=== PATIENT | female | born 1995 | race Caucasian/White ===

== ENCOUNTER 2018-01-22 00:39 | Emergency (ER) | payer SELFPAY ==
--- NOTE | 2018-01-22 00:53 | EDM.PDOC ---
ED HPI GENERAL MEDICAL PROBLEM - General Chief Complaint: ENT Problem Stated Complaint: TOOTH PAIN Time Seen by Provider: 01/22/18 00:53 Source of Information: Reports: Patient - History of Present Illness INITIAL COMMENTS - FREE TEXT/NARRATIVE: HISTORY AND PHYSICAL: History of present illness: 22-year-old 36 week female presenting to the emergency department with right lower facial pain. Patient states that she has had a dental abscess for some time. She had been seeing Patti Kwok NP as her INSULATION ENGINEMAN who placed her on penicillin. States that she took the medication for some time but then stopped. She restarted taking the medication 4-5 days ago but it does not seem to be helping. Pain is located in the right molar region. She has not seen a dentist. She denies any fever, chills, nausea, vomiting, diarrhea, or other signs of systemic infection. Review of systems: As per history of present illness and below otherwise all systems reviewed and negative. Past medical history: As per history of present illness and as reviewed below otherwise noncontributory. Surgical history: As per history of present illness and as reviewed below otherwise noncontributory. Social history: No reported history of drug or alcohol abuse. Family history: As per history of present illness and as reviewed below otherwise noncontributory. Physical exam: HEENT: Poor dentition throughout. Adjacent to maxillary molars 30-32 there is inflammation of the soft tissues without extension into the jaw. Patient is non- tender to tapping on teeth. Atraumatic, normocephalic, pupils reactive, negative for conjunctival pallor or scleral icterus, mucous membranes moist, throat clear, neck supple, nontender, trachea midline. Lungs: Clear to auscultation, breath sounds equal bilaterally, chest nontender. Heart: S1S2, regular, negative for clicks, rubs, or JVD. Abdomen: Soft, nondistended, nontender. Negative for masses or hepatosplenomegaly. Negative for costovertebral tenderness. Pelvis: Stable nontender. Genitourinary: Deferred. Rectal: Deferred. Extremities: Atraumatic, negative for cords or calf pain. Neurovascular unremarkable. Neuro: Awake, alert, oriented. Cranial nerves II through XII unremarkable. Cerebellum unremarkable. Motor and sensory unremarkable throughout. Exam nonfocal. Diagnostics: [] Therapeutics: Dental balls, Clindamycin 600 mg x1, 300 mg qid x10 days Impression: Dental abscess Plan: Patient received good relief with dental ball placement. Secondary the patient haven taking penicillin previously without any improvement in her symptoms anabiotic was switched to clindamycin which is category B. She was given 600 mg 1 while in emergency room and a prescription for 300 mg 4 times a day 10 days. Patient was instructed to follow-up with her INSULATION ENGINEMAN provider Patti Kwok NP. In addition, patient was given information on dentist for extraction of teeth causing abscess. It was explained to the patient that without proper dental treatment this may reoccur. Patient was understanding and was discharged in good condition with instructions to return to emergency department if she had any new or worsening symptoms. tooth Pain Score (Numeric/FACES): 10 - Related Data Allergies Allergy/AdvReac Type Severity Reaction Status Date / Time No Known Allergies Allergy Verified 01/22/18 00:56 Home Meds: Home Meds Penicillin V Potassium 0 mg PO DAILY 01/22/18 [History] Past Medical History - Past Health History Medical/Surgical History: Denies Medical/Surgical History INSULATION ENGINEMAN History: Reports: Social & Family History - Family History Family Medical History: Noncontributory ED ROS GENERAL - Review of Systems Review Of Systems: See Below ED EXAM, GENERAL - Physical Exam Exam: See Below Course - Vital Signs Last Recorded V/S: Last Vital Signs Temp 97.3 F 01/22/18 00:39 Pulse 97 01/22/18 00:39 Resp 18 01/22/18 00:39 BP 143/81 H 01/22/18 00:39 Pulse Ox 99 01/22/18 00:39 - Orders/Labs/Meds Meds: Medications Discontinued Medications Generic Name Dose Route Start Last Admin Trade Name Freq PRN Reason Stop Dose Admin Benzocaine 2 each 01/22/18 00:57 01/22/18 01:06 Hurricaine One 20% MUCMEM 01/22/18 00:58 2 each ONETIME ONE Administration Lidocaine HCl 15 ml 01/22/18 00:57 01/22/18 01:06 Xylocaine 2% Viscous PO 01/22/18 00:58 15 ml ONETIME ONE Administration Departure - Departure Time of Disposition: 01:43 Disposition: Home, Self-Care 01 Condition: Good Clinical Impression: Dental abrasion, localized - Discharge Information Referrals: Emeka Morris MD [Primary Care Provider] - Forms: ED Department Discharge Additional Instructions: My general discharge The following information is given to patients seen in the emergency department who are being discharged to home. This information is to outline your options for follow-up care. We provide all patients seen in our emergency department with a follow-up referral. The need for follow-up, as well as the timing and circumstances, are variable depending upon the specifics of your emergency department visit. If you don't have a primary care physician on staff, we will provide you with a referral. We always advise you to contact your personal physician following an emergency department visit to inform them of the circumstance of the visit and for follow-up with them and/or the need for any referrals to a consulting specialist. The emergency department will also refer you to a specialist when appropriate. This referral assures that you have the opportunity for follow-up care with a specialist. All of these measure are taken in an effort to provide you with optimal care, which includes your follow-up. Under all circumstances we always encourage you to contact your private physician who remains a resource for coordinating your care. When calling for follow-up care, please make the office aware that this follow-up is from your recent emergency room visit. If for any reason you are refused follow-up, please contact the [facility] Emergency Department at and asked to speak to the emergency department charge nurse. [facility] - [facility] [address] [place] [id number] [address] [facility] [address] [place] [id number]
[2018-01-22] MEDS: Benzocaine 20% Topical Spray UD MUCMEM ONE (01:06)
[2018-01-22] MEDS: Lidocaine 2% Viscous Solution 15 ML Cup PO ONE (01:06)
[2018-01-22] MEDS: Clindamycin HCl 150 MG Cap PO ONE (01:38)
[2018-01-22 01:56] VITALS: BP 106/75
== END 2018-01-22 01:54 | disposition home or self-care (01) ==
LOC: MW.ED 00:39
DX: O99.613 Diseases of the digestive system complicating pregnancy, third trimester (principal); K04.7 Periapical abscess without sinus; K03.1 Abrasion of teeth; Z3A.36 36 weeks gestation of pregnancy
CPT/HCPCS: 99282; A9270

== ENCOUNTER 2018-02-12 22:24 | Inpatient (IN) | payer MEDICAID ==
[~2018-02-12 22:24] MED LIST: Ampicillin 2 GM in Sodium Chloride 0.9% 100 ML IV ONE
[2018-02-12] MEDS ORDERED: Sodium Chloride 0.9% 100 ML ONE (22:25)
[2018-02-12] MEDS ORDERED: Ampicillin 2 GM AdvVial IV ONE (22:25)
[2018-02-12] MEDS ORDERED: Misoprostol 200 MCG Tab PO PRN (22:28)
[2018-02-12] MEDS ORDERED: Butorphanol 1 MG/ML SDV IVPUSH PRN (22:28)
[2018-02-12] MEDS ORDERED: Tranexamic Acid 1,000 MG in Sodium Chloride 0.9% 100 ML IV PRN (22:28)
[2018-02-12] MEDS ORDERED: Lidocaine 1% 50 ML MDV INJECT PRN (22:28)
[2018-02-12] MEDS ORDERED: Carboprost Tromethamine 250 MCG/1 ML Amp IM PRN (22:28)
[2018-02-12] MEDS ORDERED: Sodium Chloride 0.9% 10 ML Syringe FLUSH PRN (22:28)
[2018-02-12] MEDS ORDERED: Methylergonovine 0.2 MG/1 ML Amp IM PRN ×2 (22:28→23:28)
[2018-02-12] MEDS ORDERED: Sodium Chloride 0.9% 2.5 ML Syringe FLUSH PRN (22:28)
[2018-02-12] MEDS ORDERED: Water For Irrigation,Sterile 1,000 ML Container IRR PRN (22:28)
[2018-02-12] MEDS ORDERED: Nalbuphine 10 MG/1 ML Vial IVPUSH PRN (22:28)
[2018-02-12] MEDS ORDERED: Oxytocin/0.9 % Sodium Chloride 30 UNIT/500 ML BAG IV SCH (22:30)
[2018-02-12] MEDS ORDERED: Lactated Ringers 1,000 ML IV SCH (22:30)
[2018-02-12] MEDS ORDERED: Oxytocin/0.9 % Sodium Chloride 30 UNIT/500 ML BAG ONE (22:47)
[2018-02-12] MEDS ORDERED: Lidocaine 1% 50 ML MDV ONE (22:48)
[2018-02-12] MEDS ORDERED: Ibuprofen 400 MG Tab PO PRN (23:28)
[2018-02-12] MEDS ORDERED: Witch Hazel Medicated Pads 40/Jar TOP PRN (23:28)
[2018-02-12] MEDS ORDERED: Benzocaine/Menthol 20%-0.5% Spray 78 GM Cannister TOP PRN (23:28)
[2018-02-12] MEDS ORDERED: oxyCODONE 5 MG Tab PO PRN (23:28)
[2018-02-12] MEDS ORDERED: Lanolin 100% Cream 7 GM Tube TOP PRN (23:28)
[2018-02-12] MEDS ORDERED: Bisacodyl 10 MG Supp RECTAL PRN (23:28)
[2018-02-12] MEDS ORDERED: Acetaminophen 500 MG Tab PO PRN ×2 (23:28)
[2018-02-12] MEDS ORDERED: Docusate Sodium 100 MG Cap PO PRN (23:28)
--- NOTE | 2018-02-12 23:28 | PCM.DEL ---
L & D Note - General Info Date of Service: 02/12/18 Mother's Due Date: 02/12/18 - Delivery Note Labor: Spontaneous Delivery Outcome: Livebirth Infant Delivery Method: Spontaneous Vaginal Delivery-Single Presentation: Compound Nuchal Cord: None Prep: Other Anesthesia Type: Local Anesthetic: Lidocaine (Xylocaine) 1% Plain Local Anesthetic Volume: 3cc Amniotic Fluid Description: Meconium Stained Episiotomy Type: None Laceration: 1st Degree Suture type: Vicryl Suture size: 4-0 Placenta: Intact, Spontaneous Cord: 3 Vessels Estimated Blood Loss: 300 Resuscitation Needed: No [place]: Suctioned Score 1 min: 9 Score 5 min: 9 Second Stage Interventions: Reports: Other (see below) (precipitous delivery) - General Info Date of Service: 02/12/18 - Patient Data Lab Results Last 24 Hours: Laboratory Results - last 24 hr 02/12/18 02/12/18 Range/Units 22:37 22:37 WBC 19.19 H (4.0-11.0) K/uL RBC 4.10 L (4.30-5.90) M/uL Hgb 11.3 L (12.0-16.0) g/dL Hct 34.9 L (36.0-46.0) % MCV 85.1 (80.0-98.0) fL MCH 27.6 (27.0-32.0) pg MCHC 32.4 (31.0-37.0) g/dL RDW Std Deviation 46.8 (28.0-62.0) fl RDW Coeff of Julieta 15 (11.0-15.0) % Plt Count 281 (150-400) K/uL MPV 10.20 (7.40-12.00) fL Nucleated RBC % 0.0 /100WBC Nucleated RBCs # 0 K/uL Blood Type A POSITIVE Antibody Screen NEGATIVE Med Orders - Current: Current Medications Butorphanol Tartrate (Stadol) 1 mg IVPUSH Q1H PRN PRN Reason: Pain Carboprost Tromethamine (Hemabate Ds) 250 mcg IM ASDIRECTED PRN PRN Reason: Post Hemorrhage Lactated Ringer's (Ringers, Lactated) 1,000 mls @ 150 mls/hr IV ASDIRECTED ANA Oxytocin/Sodium Chloride (Oxytocin 30 Unit/500 Ml-Ns) 30 unit in 500 mls @ 999 mls/hr IV TITRATE ANA Tranexamic Acid 1,000 mg/ (Sodium Chloride) 110 mls @ 660 mls/hr IV ONETIME PRN PRN Reason: Bleeding Ampicillin Sodium 1 gm/ Sodium (Chloride) 50 mls @ 100 mls/hr IV Q4H ANA Lidocaine HCl (Xylocaine 1%) 50 ml INJECT .ONCE PRN PRN Reason: Laceration repair Methylergonovine Maleate (Methergine) 0.2 mg IM ASDIRECTED PRN PRN Reason: Post Hemorrhage Misoprostol (Cytotec) 200 mcg PO .ONCE PRN PRN Reason: Post Hemorrhage Nalbuphine HCl (Nubain) 10 mg IVPUSH Q1H PRN PRN Reason: Pain (severe 7-10) Sodium Chloride (Saline Flush) 10 ml FLUSH ASDIRECTED PRN PRN Reason: Keep Vein Open Sodium Chloride (Saline Flush) 2.5 ml FLUSH ASDIRECTED PRN PRN Reason: Keep Vein Open Sterile Water (Sterile Water For Irrigation) 1,000 ml IRR ASDIRECTED PRN PRN Reason: delivery Discontinued Medications Ampicillin Sodium 2 gm/ Sodium (Chloride) 100 mls @ 200 mls/hr IV ONETIME ONE Stop: 02/12/18 22:29 - Problem List & Annotations (1) (spontaneous vaginal delivery) SNOMED Code(s): 73566733 Code(s): O80 - ENCOUNTER FOR FULL-TERM UNCOMPLICATED DELIVERY Status: Acute Priority: Medium Current Visit: No - Problem List Review Problem List Initiated/Reviewed/Updated: Yes - My Orders Last 24 Hours: My Active Orders 02/12/18 22:28 Patient Status [ADT] Routine Heart Tones [RC] CONTINUOUS Non Stress Test [RC] PER UNIT ROUTINE May Shower [RC] ASDIRECTED Notify Provider [RC] PRN Up ad Loren [RC] ASDIRECTED Vaginal Exam [RC] PRN Vital Signs [RC] PER UNIT ROUTINE Butorphanol [Stadol] 1 mg IVPUSH Q1H PRN Carboprost Tromethamine [Hemabate DS] 250 mcg IM ASDIRECTED PRN Lidocaine 1% [Xylocaine 1%] 50 ml INJECT .ONCE PRN Methylergonovine [Methergine] 0.2 mg IM ASDIRECTED PRN Misoprostol [Cytotec] 200 mcg PO .ONCE PRN Nalbuphine [Nubain] 10 mg IVPUSH Q1H PRN Sodium Chloride 0.9% [Saline Flush] 10 ml FLUSH ASDIRECTED PRN Sodium Chloride 0.9% [Saline Flush] 2.5 ml FLUSH ASDIRECTED PRN Tranexamic Acid [Cyklokapron] 1,000 mg Sodium Chloride 0.9% [Normal Saline] 100 ml IV ONETIME Water For Irrigation,Sterile [Sterile Water for Irrigation] 1,000 ml IRR ASDIRECTED PRN Scalp Electrode [WOMSER] Per Unit Routine Peripheral IV Insertion Adult [OM.PC] Routine Resuscitation Status Routine 02/12/18 22:30 Lactated Ringers [Ringers, Lactated] 1,000 ml IV ASDIRECTED Oxytocin/0.9 % Sodium Chloride [Oxytocin 30 Unit/500 ML-NS] 30 unit in 500 ml IV TITRATE 02/13/18 02:00 Ampicillin 1 gm Sodium Chloride 0.9% [Normal Saline] 50 ml IV Q4H
--- NOTE | 2018-02-13 00:06 | OR ---
SURGEON: Sherita Mc M.D. DATE OF PROCEDURE: 02/12/2018 PREOPERATIVE DIAGNOSIS: 40 week intrauterine , active spontaneous labor. POSTOPERATIVE DIAGNOSIS: 40 week intrauterine , active spontaneous labor. PROCEDURE: 1. Precipitous vaginal delivery. 2. Repair of first-degree laceration. ANESTHESIA: Local. ESTIMATED BLOOD LOSS: Less than 300 mL. FINDINGS: Live-born male, scores 9 and 9. Weight is pending at the time of dictation. Placenta spontaneous, [place] intact with 3 vessels. First-degree perineal laceration repaired. COMPLICATIONS: None known. DISPOSITION: Mother and baby in LDRP in good condition. BRIEF HISTORY: This is a 22-year-old female, she is G4, P3-0-0-3. She presents at 40 weeks' gestation in active spontaneous labor, 8 cm upon presentation, unknown group B strep status with very limited care. Last visit was in September of 2017 and it appears that she has had 2 visits. At her most recent visit, she was diagnosed with chlamydia. She was treated. She has not had a test of cure. We do not have a group B strep status, however, she has been treated through the emergency room for a tooth abscess with clindamycin. She has also been treated during the for urinary tract infection. She presents in active spontaneous labor, 8 cm dilated, category 1 heart tones. Upon rupture of membranes, she delivered within 10 minutes. DESCRIPTION OF PROCEDURE: The patient delivered precipitously. Within 3 minutes of the time of delivery of the , I presented to the room and the cord was clamped x2 and cut. Per the nurse, the presentation was a compound presentation with the hand near the head. The infant was a liveborn male, scores 9 and 9. Weight is pending at the time of dictation. Cord blood was collected for cord ABGs as well as routine cord blood sampling. Pitocin was initiated after delivery of the to assist with delivery of the placenta which was delivered spontaneously. Gu[place]ro intact with 3 vessels. Upon inspection of the pelvis and perineum, there were no periurethral, vaginal sidewall, cervical, or rectal lacerations. There was a very small first-degree perineal laceration that was slightly . Therefore, 3 mL of 1% lidocaine were injected and 4-0 Vicryl was utilized in a subcuticular fashion to reapproximate the skin. Final sponge, needle, and instrument counts were correct. There were no known complications. Mother and baby remained in LDRP in good condition. Repeat chlamydia testing has been performed. Note is that she has had at least 2 prior negative drug screens on the chart. However, the powder compounder was informed of limited care as well as the chlamydia without test of cure. NOE GARCIA /[id number]
[2018-02-13] MEDS ORDERED: Ampicillin 1 GM in Sodium Chloride 0.9% 50 ML IV SCH (02:00)
[2018-02-13] MEDS: Ibuprofen 800 MG Tab PO PRN ×2 (02:06→15:24)
--- NOTE | 2018-02-13 07:59 | PCM.PNPP ---
- General Info Date of Service: 02/13/18 Functional Status: Reports: Pain Controlled, Tolerating Diet, Ambulating, Urinating, Other (minimal lochia, well.) - Review of Systems General: Reports: No Symptoms HEENT: Reports: No Symptoms Pulmonary: Reports: No Symptoms Cardiovascular: Reports: No Symptoms Gastrointestinal: Reports: No Symptoms Genitourinary: Reports: No Symptoms Musculoskeletal: Reports: No Symptoms Skin: Reports: No Symptoms Neurological: Reports: No Symptoms Psychiatric: Reports: No Symptoms - Patient Data Vital Signs - Most Recent: Last Vital Signs Temp 37.6 C 02/13/18 05:50 Pulse 77 02/13/18 05:50 Resp 17 02/13/18 05:50 BP 111/57 L 02/13/18 05:50 Pulse Ox 94 L 02/13/18 05:50 Weight - Most Recent: 76.204 kg Lab Results - Last 24 Hours: Laboratory Results - last 24 hr 02/12/18 02/12/18 02/12/18 Range/Units 22:25 22:37 22:37 WBC 19.19 H (4.0-11.0) K/uL RBC 4.10 L (4.30-5.90) M/uL Hgb 11.3 L (12.0-16.0) g/dL Hct 34.9 L (36.0-46.0) % MCV 85.1 (80.0-98.0) fL MCH 27.6 (27.0-32.0) pg MCHC 32.4 (31.0-37.0) g/dL RDW Std Deviation 46.8 (28.0-62.0) fl RDW Coeff of Julieta 15 (11.0-15.0) % Plt Count 281 (150-400) K/uL MPV 10.20 (7.40-12.00) fL Nucleated RBC % 0.0 /100WBC Nucleated RBCs # 0 K/uL Cord ABG pH 7.328 (7.18-7.38) Cord ABG Base Excess -3 (-10--2) Cord VBG pH 7.429 (7.25-7.45) Cord VBG Base Excess -1 H (-10--2) Blood Type A POSITIVE Antibody Screen NEGATIVE 02/13/18 Range/Units 04:55 WBC (4.0-11.0) K/uL RBC (4.30-5.90) M/uL Hgb 9.3 L (12.0-16.0) g/dL Hct 28.6 L (36.0-46.0) % MCV (80.0-98.0) fL MCH (27.0-32.0) pg MCHC (31.0-37.0) g/dL RDW Std Deviation (28.0-62.0) fl RDW Coeff of Julieta (11.0-15.0) % Plt Count (150-400) K/uL MPV (7.40-12.00) fL Nucleated RBC % /100WBC Nucleated RBCs # K/uL Cord ABG pH (7.18-7.38) Cord ABG Base Excess (-10--2) Cord VBG pH (7.25-7.45) Cord VBG Base Excess (-10--2) Blood Type Antibody Screen Med Orders - Current: Current Medications Acetaminophen (Tylenol Extra Strength) 500 mg PO Q4H PRN PRN Reason: Pain Acetaminophen (Tylenol Extra Strength) 1,000 mg PO Q4H PRN PRN Reason: Pain Benzocaine/Menthol (Dermoplast Pain Relief 20%-0.5% [place]) 78 gm TOP ASDIRECTED PRN PRN Reason: Perineal Comfort Measure Last Admin: 02/13/18 01:25 Dose: 1 can Bisacodyl (Dulcolax) 10 mg RECTAL .ONCE PRN PRN Reason: Constipation Docusate Sodium (Colace) 100 mg PO BID PRN PRN Reason: Constipation Emollient Ointment (Lansinoh Hpa) 0 gm TOP ASDIRECTED PRN PRN Reason: Sore Nipples Ibuprofen (Motrin) 400 mg PO Q4H PRN PRN Reason: Pain Ibuprofen (Motrin) 800 mg PO Q6H PRN PRN Reason: Pain Last Admin: 02/13/18 02:06 Dose: 800 mg Methylergonovine Maleate (Methergine) 0.2 mg IM .ONCE PRN PRN Reason: Excessive Vaginal Bleeding Oxycodone HCl (Oxycodone) 5 mg PO Q2H PRN PRN Reason: Pain Witch Viv (Tucks) 1 pad TOP ASDIRECTED PRN PRN Reason: comfort care Discontinued Medications Ampicillin Sodium (Ampicillin) Confirm Administered Dose 2 gm IV .STK-MED ONE Stop: 02/12/18 22:26 Last Admin: 02/13/18 05:58 Dose: Not Given Butorphanol Tartrate (Stadol) 1 mg IVPUSH Q1H PRN PRN Reason: Pain Carboprost Tromethamine (Hemabate Ds) 250 mcg IM ASDIRECTED PRN PRN Reason: Post Hemorrhage Ampicillin Sodium 2 gm/ Sodium (Chloride) 100 mls @ 200 mls/hr IV ONETIME ONE Stop: 02/12/18 22:29 Last Admin: 02/12/18 22:39 Dose: 200 mls/hr Lactated Ringer's (Ringers, Lactated) 1,000 mls @ 150 mls/hr IV ASDIRECTED ANA Last Admin: 02/12/18 22:37 Dose: 150 mls/hr Oxytocin/Sodium Chloride (Oxytocin 30 Unit/500 Ml-Ns) 30 unit in 500 mls @ 999 mls/hr IV TITRATE ANA Tranexamic Acid 1,000 mg/ (Sodium Chloride) 110 mls @ 660 mls/hr IV ONETIME PRN PRN Reason: Bleeding Ampicillin Sodium 1 gm/ Sodium (Chloride) 50 mls @ 100 mls/hr IV Q4H ANA Sodium Chloride (Normal Saline) Confirm Administered Dose 100 mls @ as directed .ROUTE .STK-MED ONE Stop: 02/12/18 22:26 Last Admin: 02/13/18 05:58 Dose: Not Given Oxytocin/Sodium Chloride (Oxytocin 30 Unit/500 Ml-Ns) Confirm Administered Dose 30 unit in 500 mls @ as directed .ROUTE .STK-MED ONE Stop: 02/12/18 22:48 Last Admin: 02/13/18 05:58 Dose: Not Given Lidocaine HCl (Xylocaine 1%) 50 ml INJECT .ONCE PRN PRN Reason: Laceration repair Last Admin: 02/12/18 23:32 Dose: 50 ml Lidocaine HCl (Xylocaine 1%) Confirm Administered Dose 50 ml .ROUTE .STK-MED ONE Stop: 02/12/18 22:49 Last Admin: 02/13/18 05:58 Dose: Not Given Methylergonovine Maleate (Methergine) 0.2 mg IM ASDIRECTED PRN PRN Reason: Post Hemorrhage Misoprostol (Cytotec) 200 mcg PO .ONCE PRN PRN Reason: Post Hemorrhage Nalbuphine HCl (Nubain) 10 mg IVPUSH Q1H PRN PRN Reason: Pain (severe 7-10) Sodium Chloride (Saline Flush) 10 ml FLUSH ASDIRECTED PRN PRN Reason: Keep Vein Open Sodium Chloride (Saline Flush) 2.5 ml FLUSH ASDIRECTED PRN PRN Reason: Keep Vein Open Sterile Water (Sterile Water For Irrigation) 1,000 ml IRR ASDIRECTED PRN PRN Reason: delivery Last Admin: 02/12/18 23:32 Dose: 1,000 ml - Infant Interaction Infant Disposition, : [place] to Nursery Feeding: Breastfed Infant; Nursed Well Support Person: Mother, Significant Other - Recovery Exam Fundal Tone: Firm Fundal Level: At Umbilicus Fundal Placement: Right Lochia Amount: Scant Lochia Color: Rubra/Red Perineum Description: Other (see below) Other Perinuem Description: 1st degree laceration Episiotomy/Laceration: Approximated Bladder Status: Nonpalpable, Voiding - Exam General: Alert, Oriented Lungs: Normal Respiratory Effort GI/Abdominal Exam: Soft, Non-Tender, No Organomegaly, No Distention Extremities: Normal Inspection, Non-Tender, No Pedal Edema Skin: Warm, Dry, Intact Neurological: No New Focal Deficit Psy/Mental Status: Alert, Normal Affect, Normal Mood - Problem List & Annotations (1) (spontaneous vaginal delivery) SNOMED Code(s): 43216982 Code(s): O80 - ENCOUNTER FOR FULL-TERM UNCOMPLICATED DELIVERY Status: Acute Priority: Medium Current Visit: No - Problem List Review Problem List Initiated/Reviewed/Updated: Yes - My Orders Last 24 Hours: My Active Orders 02/12/18 22:28 Heart Tones [RC] CONTINUOUS Non Stress Test [RC] PER UNIT ROUTINE May Shower [RC] ASDIRECTED Notify Provider [RC] PRN Up ad Loren [RC] ASDIRECTED Vaginal Exam [RC] PRN Vital Signs [RC] PER UNIT ROUTINE 02/12/18 23:28 Patient Status [ADT] Routine May Shower [RC] ASDIRECTED Up ad Loren [RC] ASDIRECTED Vital Signs [RC] PER UNIT ROUTINE Acetaminophen [Tylenol Extra Strength] 1,000 mg PO Q4H PRN Acetaminophen [Tylenol Extra Strength] 500 mg PO Q4H PRN Benzocaine/Menthol [Dermoplast Pain Relief 20%-0.5% [place]] 78 gm TOP ASDIRECTED PRN Bisacodyl [Dulcolax] 10 mg RECTAL .ONCE PRN Docusate Sodium [Colace] 100 mg PO BID PRN Ibuprofen [Motrin] 400 mg PO Q4H PRN Ibuprofen [Motrin] 800 mg PO Q6H PRN Lanolin [Lansinoh HPA] See Dose Instructions TOP ASDIRECTED PRN Methylergonovine [Methergine] 0.2 mg IM .ONCE PRN Witch Viv [Tucks] 1 pad TOP ASDIRECTED PRN oxyCODONE 5 mg PO Q2H PRN Assess Lochia [WOMSER] Per Unit Routine Assess Uterine Involution [WOMSER] Per Unit Routine Peripheral IV Discontinue [OM.PC] Routine Resuscitation Status Routine 02/12/18 23:29 Perineal Care [OM.PC] Per Unit Routine 02/12/18 23:40 CHLAMYDIA AND GONORRHEA BY TMA Routine 02/13/18 Breakfast Regular Diet [DIET] - Assessment Assessment:: PPD#1 s/p TSVD stable minimal lochia, well. - Plan Plan:: Continue care. Anticipate discharge in am.
[2018-02-14] MEDS: Ibuprofen 800 MG Tab PO PRN (04:27)
--- NOTE | 2018-02-14 08:01 | PCM.PNPP ---
<Jessie Lopez - Last Filed: 02/14/18 07:59> - General Info Date of Service: 02/14/18 Functional Status: Reports: Pain Controlled, Tolerating Diet, Ambulating, Urinating - Review of Systems General: Denies: Fever, Weakness, Fatigue Pulmonary: Denies: Shortness of Breath, Pleuritic Chest Pain, Cough Cardiovascular: Denies: Chest Pain, Palpitations, Dyspnea on Exertion Gastrointestinal: Denies: Abdominal Pain Genitourinary: Denies: Dysuria - General Info Date of Service: 02/14/18 - Patient Data Vital Signs - Most Recent: Last Vital Signs Temp 36.7 C 02/14/18 04:13 Pulse 64 02/14/18 04:13 Resp 18 02/14/18 04:13 BP 99/57 L 02/14/18 04:13 Pulse Ox 98 02/14/18 04:13 Weight - Most Recent: 76.204 kg Med Orders - Current: Current Medications Acetaminophen (Tylenol Extra Strength) 500 mg PO Q4H PRN PRN Reason: Pain Acetaminophen (Tylenol Extra Strength) 1,000 mg PO Q4H PRN PRN Reason: Pain Last Admin: 02/13/18 15:25 Dose: 1,000 mg Benzocaine/Menthol (Dermoplast Pain Relief 20%-0.5% Bison) 78 gm TOP ASDIRECTED PRN PRN Reason: Perineal Comfort Measure Last Admin: 02/13/18 01:25 Dose: 1 can Bisacodyl (Dulcolax) 10 mg RECTAL .ONCE PRN PRN Reason: Constipation Docusate Sodium (Colace) 100 mg PO BID PRN PRN Reason: Constipation Emollient Ointment (Lansinoh Hpa) 0 gm TOP ASDIRECTED PRN PRN Reason: Sore Nipples Ibuprofen (Motrin) 400 mg PO Q4H PRN PRN Reason: Pain Ibuprofen (Motrin) 800 mg PO Q6H PRN PRN Reason: Pain Last Admin: 02/14/18 04:27 Dose: 800 mg Methylergonovine Maleate (Methergine) 0.2 mg IM .ONCE PRN PRN Reason: Excessive Vaginal Bleeding Oxycodone HCl (Oxycodone) 5 mg PO Q2H PRN PRN Reason: Pain Witch Ivv (Tucks) 1 pad TOP ASDIRECTED PRN PRN Reason: comfort care Discontinued Medications Ampicillin Sodium (Ampicillin) Confirm Administered Dose 2 gm IV .STK-MED ONE Stop: 02/12/18 22:26 Last Admin: 02/13/18 05:58 Dose: Not Given Butorphanol Tartrate (Stadol) 1 mg IVPUSH Q1H PRN PRN Reason: Pain Carboprost Tromethamine (Hemabate Ds) 250 mcg IM ASDIRECTED PRN PRN Reason: Post Hemorrhage Ampicillin Sodium 2 gm/ Sodium (Chloride) 100 mls @ 200 mls/hr IV ONETIME ONE Stop: 02/12/18 22:29 Last Admin: 02/12/18 22:39 Dose: 200 mls/hr Lactated Ringer's (Ringers, Lactated) 1,000 mls @ 150 mls/hr IV ASDIRECTED ANA Last Admin: 02/12/18 22:37 Dose: 150 mls/hr Oxytocin/Sodium Chloride (Oxytocin 30 Unit/500 Ml-Ns) 30 unit in 500 mls @ 999 mls/hr IV TITRATE ANA Tranexamic Acid 1,000 mg/ (Sodium Chloride) 110 mls @ 660 mls/hr IV ONETIME PRN PRN Reason: Bleeding Ampicillin Sodium 1 gm/ Sodium (Chloride) 50 mls @ 100 mls/hr IV Q4H ANA Sodium Chloride (Normal Saline) Confirm Administered Dose 100 mls @ as directed .ROUTE .STK-MED ONE Stop: 02/12/18 22:26 Last Admin: 02/13/18 05:58 Dose: Not Given Oxytocin/Sodium Chloride (Oxytocin 30 Unit/500 Ml-Ns) Confirm Administered Dose 30 unit in 500 mls @ as directed .ROUTE .STK-MED ONE Stop: 02/12/18 22:48 Last Admin: 02/13/18 05:58 Dose: Not Given Lidocaine HCl (Xylocaine 1%) 50 ml INJECT .ONCE PRN PRN Reason: Laceration repair Last Admin: 02/12/18 23:32 Dose: 50 ml Lidocaine HCl (Xylocaine 1%) Confirm Administered Dose 50 ml .ROUTE .STK-MED ONE Stop: 02/12/18 22:49 Last Admin: 02/13/18 05:58 Dose: Not Given Methylergonovine Maleate (Methergine) 0.2 mg IM ASDIRECTED PRN PRN Reason: Post Hemorrhage Misoprostol (Cytotec) 200 mcg PO .ONCE PRN PRN Reason: Post Hemorrhage Nalbuphine HCl (Nubain) 10 mg IVPUSH Q1H PRN PRN Reason: Pain (severe 7-10) Sodium Chloride (Saline Flush) 10 ml FLUSH ASDIRECTED PRN PRN Reason: Keep Vein Open Sodium Chloride (Saline Flush) 2.5 ml FLUSH ASDIRECTED PRN PRN Reason: Keep Vein Open Sterile Water (Sterile Water For Irrigation) 1,000 ml IRR ASDIRECTED PRN PRN Reason: delivery Last Admin: 02/12/18 23:32 Dose: 1,000 ml - Infant Interaction Disposition, : [place] at Bedside Feeding: Breastfed ; Nursed Well Support Person: Mother, Significant Other - Recovery Exam Fundal Tone: Firm Fundal Level: 1 Fingerbreadths Below Umbilicus Fundal Placement: Midline Lochia Amount: Scant Lochia Color: Rubra/Red Perineum Description: Other (see below) Other Perinuem Description: 1st degree laceration Episiotomy/Laceration: Approximated Bladder Status: Voiding Urinary Elimination: Voided - Exam General: Alert, Oriented Neck: Supple Lungs: Clear to Auscultation, Normal Respiratory Effort Cardiovascular: Regular Rate, Regular Rhythm GI/Abdominal Exam: Normal Bowel Sounds, Soft, No Distention, No Mass Extremities: Normal Inspection, Non-Tender, Normal Capillary Refill, Pedal Edema (trace) Skin: Warm, Dry, Intact Psy/Mental Status: Alert - Assessment Assessment:: PPD#2 s/p stable minimal lochia, well. Discharge home today. - Plan Plan:: Discharge instructions reviewed. Pelvic rest for 6 weeks. Continue PNV while breast feeding. Can use OTC ibuprofen/tylenol as needed for pain. Instructed patient to call if she develops fever greater than 101 or bleeding through a large pad an hour. F/U in 6 weeks. <Suly Fernandez - Last Filed: 02/14/18 08:51> - Patient Data Vital Signs - Most Recent: Last Vital Signs Temp 36.7 C 02/14/18 04:13 Pulse 64 02/14/18 04:13 Resp 18 02/14/18 04:13 BP 99/57 L 02/14/18 04:13 Pulse Ox 98 02/14/18 04:13 Med Orders - Current: Current Medications Acetaminophen (Tylenol Extra Strength) 500 mg PO Q4H PRN PRN Reason: Pain Acetaminophen (Tylenol Extra Strength) 1,000 mg PO Q4H PRN PRN Reason: Pain Last Admin: 02/13/18 15:25 Dose: 1,000 mg Benzocaine/Menthol (Dermoplast Pain Relief 20%-0.5% Bison) 78 gm TOP ASDIRECTED PRN PRN Reason: Perineal Comfort Measure Last Admin: 02/13/18 01:25 Dose: 1 can Bisacodyl (Dulcolax) 10 mg RECTAL .ONCE PRN PRN Reason: Constipation Docusate Sodium (Colace) 100 mg PO BID PRN PRN Reason: Constipation Emollient Ointment (Lansinoh Hpa) 0 gm TOP ASDIRECTED PRN PRN Reason: Sore Nipples Ibuprofen (Motrin) 400 mg PO Q4H PRN PRN Reason: Pain Ibuprofen (Motrin) 800 mg PO Q6H PRN PRN Reason: Pain Last Admin: 02/14/18 04:27 Dose: 800 mg Methylergonovine Maleate (Methergine) 0.2 mg IM .ONCE PRN PRN Reason: Excessive Vaginal Bleeding Oxycodone HCl (Oxycodone) 5 mg PO Q2H PRN PRN Reason: Pain Witch Viv (Tucks) 1 pad TOP ASDIRECTED PRN PRN Reason: comfort care Discontinued Medications Ampicillin Sodium (Ampicillin) Confirm Administered Dose 2 gm IV .STK-MED ONE Stop: 02/12/18 22:26 Last Admin: 02/13/18 05:58 Dose: Not Given Butorphanol Tartrate (Stadol) 1 mg IVPUSH Q1H PRN PRN Reason: Pain Carboprost Tromethamine (Hemabate Ds) 250 mcg IM ASDIRECTED PRN PRN Reason: Post Hemorrhage Ampicillin Sodium 2 gm/ Sodium (Chloride) 100 mls @ 200 mls/hr IV ONETIME ONE Stop: 02/12/18 22:29 Last Admin: 02/12/18 22:39 Dose: 200 mls/hr Lactated Ringer's (Ringers, Lactated) 1,000 mls @ 150 mls/hr IV ASDIRECTED ANA Last Admin: 02/12/18 22:37 Dose: 150 mls/hr Oxytocin/Sodium Chloride (Oxytocin 30 Unit/500 Ml-Ns) 30 unit in 500 mls @ 999 mls/hr IV TITRATE ANA Tranexamic Acid 1,000 mg/ (Sodium Chloride) 110 mls @ 660 mls/hr IV ONETIME PRN PRN Reason: Bleeding Ampicillin Sodium 1 gm/ Sodium (Chloride) 50 mls @ 100 mls/hr IV Q4H ANA Sodium Chloride (Normal Saline) Confirm Administered Dose 100 mls @ as directed .ROUTE .[employer] ONE Stop: 02/12/18 22:26 Last Admin: 02/13/18 05:58 Dose: Not Given Oxytocin/Sodium Chloride (Oxytocin 30 Unit/500 Ml-Ns) Confirm Administered Dose 30 unit in 500 mls @ as directed .ROUTE .[employer] ONE Stop: 02/12/18 22:48 Last Admin: 02/13/18 05:58 Dose: Not Given Lidocaine HCl (Xylocaine 1%) 50 ml INJECT .ONCE PRN PRN Reason: Laceration repair Last Admin: 02/12/18 23:32 Dose: 50 ml Lidocaine HCl (Xylocaine 1%) Confirm Administered Dose 50 ml .ROUTE .[employer] ONE Stop: 02/12/18 22:49 Last Admin: 02/13/18 05:58 Dose: Not Given Methylergonovine Maleate (Methergine) 0.2 mg IM ASDIRECTED PRN PRN Reason: Post Hemorrhage Misoprostol (Cytotec) 200 mcg PO .ONCE PRN PRN Reason: Post Hemorrhage Nalbuphine HCl (Nubain) 10 mg IVPUSH Q1H PRN PRN Reason: Pain (severe 7-10) Sodium Chloride (Saline Flush) 10 ml FLUSH ASDIRECTED PRN PRN Reason: Keep Vein Open Sodium Chloride (Saline Flush) 2.5 ml FLUSH ASDIRECTED PRN PRN Reason: Keep Vein Open Sterile Water (Sterile Water For Irrigation) 1,000 ml IRR ASDIRECTED PRN PRN Reason: delivery Last Admin: 02/12/18 23:32 Dose: 1,000 ml - Problem List Review Problem List Initiated/Reviewed/Updated: Yes - Plan Plan:: Patient seen and examined, agree with above.
[2018-02-14 14:06] VITALS: BP 112/57
== END 2018-02-14 17:00 | disposition home or self-care (01) | DRG 774 ==
LOC: MW.OBCHECK 22:24 → MW.OB 22:25 → OBSVTOIN 22:55 → MW.OB 22:55 → MW.OBCHECK 22:55
PROVIDERS: ADMIT Obstetrics & Gynecology; ATTEND Obstetrics & Gynecology
PROC: 10E0XZZ Delivery of Products of Conception, External Approach (ICD-10-PCS; principal; 2018-02-12)
PROC: 0HQ9XZZ Repair Perineum Skin, External Approach (ICD-10-PCS; 2018-02-12)
DX: O70.0 First degree perineal laceration during delivery (principal); O98.82 Other maternal infectious and parasitic diseases complicating childbirth; O62.3 Precipitate labor; O09.33 Supervision of pregnancy with insufficient antenatal care, third trimester; Z3A.40 40 weeks gestation of pregnancy; Z37.0 Single live birth
CPT/HCPCS: 36415; 59025; 59409; 82803; 85014; 85018; 85027; 86850; 86900; 86901; 87491; 87591; A9270-GY; J0290; J7030; J7120

== ENCOUNTER 2020-01-17 14:03 | Emergency (ER) | payer MEDICAID ==
[2020-01-17 14:31] VITALS: PULSE 107
[2020-01-17] MEDS ORDERED: Sodium Chloride 0.9% 10 ML Syringe FLUSH PRN (14:49)
[2020-01-17] MEDS ORDERED: Ondansetron 4 MG/2 ML SDV IVPUSH ONE (14:49)
[2020-01-17] MEDS ORDERED: Sodium Chloride 0.9% 1,000 ML IV ONE (14:49)
[2020-01-17] MEDS ORDERED: Sodium Chloride 0.9% 2.5 ML Syringe FLUSH PRN (14:49)
[2020-01-17] MEDS ORDERED: cefTRIAXone 1 GM Vial IVPUSH ONE (14:52)
--- NOTE | 2020-01-17 15:52 | EDM.PDOC ---
ED HPI GENERAL MEDICAL PROBLEM - General Chief Complaint: Back Pain or Injury Stated Complaint: BACK PAIN Time Seen by Provider: 01/17/20 14:28 Source of Information: Reports: Patient History Limitations: Reports: No Limitations - History of Present Illness INITIAL COMMENTS - FREE TEXT/NARRATIVE: 24-year-old female presents with right flank pain for 4 days. Pain is constant , described as cramping sensation, radiates from the right flank to the right upper quadrant area, rated at 7/10, associated with nausea, urinary urgency and urinary frequency, subjective fevers and chills. She denies dysuria, vaginal bleeding, contractions, lower abdominal pain. She also notes a mild diffuse headache that was gradual onset and progressive worsening. Her LMP = 2019. She is sexually active with one partner with no protection. She also admits to using IV meth, her last use was 3 days ago. ROS: A 10-point review of systems, other than pertinent positives and negatives as stated per HPI, is otherwise negative PHYSICAL EXAM General: AOx4, GCS = 15, moderate distress HEENT: dry mucous membrane, mild erythema posterior oropharynx, no exudates, no cervical lymphadenopathy Neck: supple, no meningismus, no Kernig or Brudzinski Cardiac: S1S2 tachycardia Respiratory: CTAB, no crackles or rales, no wheezing Abdomen: Soft, RUQ ttp, no rebound or guarding, nondistended, no pulsatile mass. Back: right CVAT Musculoskeletal: NVI distally, no deformity, no erythema or induration to the right AC. Neuro: No focal deficits, CN 2 - 12 WNL. MEDICAL DECISION MAKING: I reviewed the patients past medical records, lab and radiographic findings. I discussed the case with family members. My differential diagnosis included: Complicated UTI, pyelonephritis, biliary colic , ureteral stone. right flank Pain Score (Numeric/FACES): 7 - Related Data Allergies Allergy/AdvReac Type Severity Reaction Status Date / Time No Known Allergies Allergy Verified 01/17/20 14:31 Home Meds: Home Meds cephALEXin [Keflex] 500 mg PO Q8H #30 cap 01/17/20 [Rx] Past Medical History - Past Health History Medical/Surgical History: Denies Medical/Surgical History HEENT History: Reports: Other (See Below) Other HEENT History: abscess tooth [facility] History: Reports: Neurological History: Reports: Migraines - Infectious Disease History Infectious Disease History: Reports: Chicken Pox - Past Surgical History HEENT Surgical History: Reports: Oral Surgery, Other (See Below) Other HEENT Surgeries/Procedures: wisdom teeth extraction Neurological Surgical History: Reports: None Social & Family History - Family History Family Medical History: Noncontributory HEENT: Reports: Impaired Vision Cardiac: Reports: PA OBGYN: Reports: Oncologic: Reports: Lung, Other (See Below) Other Oncologic Family History: throat - Tobacco Use Smoking Status *Q: Current Every Day Smoker Years of Tobacco use: 12 Packs/Tins Daily: 1 - Caffeine Use Caffeine Use: Reports: None - Recreational Drug Use Recreational Drug Use: Yes Recreational Drug Type: Reports: Methamphetamine Other Recreational Drug Type: INJECTS METH Recreational Drug Use Frequency: Daily ED ROS GENERAL - Review of Systems Review Of Systems: See Below (see dictation) ED EXAM, GI/ABD - Physical Exam Exam: See Below (see dictation) Course - Vital Signs Last Recorded V/S: Last Vital Signs Temp 97.4 F 01/17/20 14:29 Pulse 107 H 01/17/20 14:29 Resp 16 01/17/20 14:29 BP 108/75 01/17/20 14:29 Pulse Ox 99 01/17/20 14:29 - Orders/Labs/Meds Orders: Active Orders 24 hr Category Date Time Status CULTURE STREP A CONFIRMATION [RM] Stat Lab 01/17/20 17:40 Results CULTURE URINE [RM] Stat Lab 01/17/20 14:20 Received STREP SCRN A RAPID W CULT CONF [RM] Stat Lab 01/17/20 17:40 Results Sodium Chloride 0.9% [Saline Flush] Med 01/17/20 14:49 Active 10 ml FLUSH ASDIRECTED PRN Sodium Chloride 0.9% [Saline Flush] Med 01/17/20 14:49 Active 2.5 ml FLUSH ASDIRECTED PRN Saline Lock Insert [OM.PC] Stat Oth 01/17/20 14:49 Ordered Medication Orders Sodium Chloride (Saline Flush) 10 ml FLUSH ASDIRECTED PRN PRN Reason: Keep Vein Open Sodium Chloride (Saline Flush) 2.5 ml FLUSH ASDIRECTED PRN PRN Reason: Keep Vein Open Labs: Laboratory Tests 01/17/20 01/17/20 01/17/20 Range/Units 14:20 14:20 14:20 WBC (4.0-11.0) K/uL RBC (4.30-5.90) M/uL Hgb (12.0-16.0) g/dL Hct (36.0-46.0) % MCV (80.0-98.0) fL MCH (27.0-32.0) pg MCHC (31.0-37.0) g/dL RDW Std Deviation (28.0-62.0) fl RDW Coeff of Julieta (11.0-15.0) % Plt Count (150-400) K/uL MPV (7.40-12.00) fL Neut % (Auto) (48.0-80.0) % Lymph % (Auto) (16.0-40.0) % [place] % (Auto) (0.0-15.0) % Eos % (Auto) (0.0-7.0) % Baso % (Auto) (0.0-1.5) % Neut # (Auto) (1.4-5.7) K/uL Lymph # (Auto) (0.6-2.4) K/uL Borden # (Auto) (0.0-0.8) K/uL Eos # (Auto) (0.0-0.7) K/uL Baso # (Auto) (0.0-0.1) K/uL Nucleated RBC % /100WBC Nucleated RBCs # K/uL Sodium (136-145) mmol/L Potassium (3.5-5.1) mmol/L Chloride (98-107) mmol/L Carbon Dioxide (21.0-32.0) mmol/L BUN (7.0-18.0) mg/dL Creatinine (0.6-1.0) mg/dL Est Cr Clr Drug Dosing mL/min Estimated GFR (MDRD) ml/min Glucose (74-106) mg/dL Calcium (8.5-10.1) mg/dL Total Bilirubin (0.2-1.0) mg/dL AST (15-37) IU/L ALT (14-63) IU/L Alkaline Phosphatase (46-116) U/L Total Protein (6.4-8.2) g/dL Albumin (3.4-5.0) g/dL Globulin (2.6-4.0) g/dL Albumin/Globulin Ratio (0.9-1.6) Lipase (73-393) U/L HCG, Quant mIU/mL Urine Color YELLOW Urine Appearance CLOUDY Urine pH 6.0 (5.0-8.0) Ur Specific [place] 1.025 (1.001-1.035) Urine Protein 100 H (NEGATIVE) mg/dL Urine Glucose (UA) NEGATIVE (NEGATIVE) mg/dL Urine Ketones NEGATIVE (NEGATIVE) mg/dL Urine Occult Blood LARGE H (NEGATIVE) Urine Nitrite POSITIVE H (NEGATIVE) Urine Bilirubin SMALL H (NEGATIVE) Urine Ictotest NEGATIVE Urine Urobilinogen 0.2 (<2.0) EU/dL Ur Leukocyte Esterase LARGE H (NEGATIVE) Urine RBC 15-20 (0-2/HPF) Urine WBC 70-80 (0-5/HPF) Ur Epithelial Cells FEW (NONE-FEW) Urine Bacteria 4+ H (NEGATIVE) Urine Mucus MODERATE (NONE-MOD) Urine HCG, Qual POSITIVE (NEGATIVE) Urine Opiates Screen NEGATIVE (NEGATIVE) Ur Oxycodone Screen POSITIVE (NEGATIVE) Urine Methadone Screen NEGATIVE (NEGATIVE) Ur Barbiturates Screen NEGATIVE (NEGATIVE) Ur Phencyclidine Scrn NEGATIVE (NEGATIVE) Ur Amphetamine Screen POSITIVE (NEGATIVE) U Methamphetamines Scrn POSITIVE (NEGATIVE) U Benzodiazepines Scrn NEGATIVE (NEGATIVE) U Cocaine Metab Screen NEGATIVE (NEGATIVE) U Marijuana (THC) Screen NEGATIVE (NEGATIVE) 01/17/20 01/17/20 Range/Units 15:23 15:23 WBC 9.58 (4.0-11.0) K/uL RBC 4.66 (4.30-5.90) M/uL Hgb 14.1 (12.0-16.0) g/dL Hct 42.7 (36.0-46.0) % MCV 91.6 (80.0-98.0) fL MCH 30.3 (27.0-32.0) pg MCHC 33.0 (31.0-37.0) g/dL RDW Std Deviation 45.2 (28.0-62.0) fl RDW Coeff of Julieta 14 (11.0-15.0) % Plt Count 189 (150-400) K/uL MPV 10.70 (7.40-12.00) fL Neut % (Auto) 82.8 H (48.0-80.0) % Lymph % (Auto) 5.4 L (16.0-40.0) % [place] % (Auto) 11.5 (0.0-15.0) % Eos % (Auto) 0.1 (0.0-7.0) % Baso % (Auto) 0.2 (0.0-1.5) % Neut # (Auto) 7.9 H (1.4-5.7) K/uL Lymph # (Auto) 0.5 L (0.6-2.4) K/uL [place] # (Auto) 1.1 H (0.0-0.8) K/uL Eos # (Auto) 0.0 (0.0-0.7) K/uL Baso # (Auto) 0.0 (0.0-0.1) K/uL Nucleated RBC % 0.0 /100WBC Nucleated RBCs # 0 K/uL Sodium 134 L (136-145) mmol/L Potassium 3.7 (3.5-5.1) mmol/L Chloride 97 L (98-107) mmol/L Carbon Dioxide 27.8 (21.0-32.0) mmol/L BUN 9 (7.0-18.0) mg/dL Creatinine 0.7 (0.6-1.0) mg/dL Est Cr Clr Drug Dosing 104.65 mL/min Estimated GFR (MDRD) > 60.0 ml/min Glucose 91 (74-106) mg/dL Calcium 9.1 (8.5-10.1) mg/dL Total Bilirubin 0.4 (0.2-1.0) mg/dL AST 48 H (15-37) IU/L ALT 83 H (14-63) IU/L Alkaline Phosphatase 129 H (46-116) U/L Total Protein 8.0 (6.4-8.2) g/dL Albumin 3.6 (3.4-5.0) g/dL Globulin 4.4 H (2.6-4.0) g/dL Albumin/Globulin Ratio 0.8 L (0.9-1.6) Lipase 46 L (73-393) U/L HCG, Quant 120.0 mIU/mL Urine Color Urine Appearance Urine pH (5.0-8.0) Ur Specific [place] (1.001-1.035) Urine Protein (NEGATIVE) mg/dL Urine Glucose (UA) (NEGATIVE) mg/dL Urine Ketones (NEGATIVE) mg/dL Urine Occult Blood (NEGATIVE) Urine Nitrite (NEGATIVE) Urine Bilirubin (NEGATIVE) Urine Ictotest Urine Urobilinogen (<2.0) EU/dL Ur Leukocyte Esterase (NEGATIVE) Urine RBC (0-2/HPF) Urine WBC (0-5/HPF) Ur Epithelial Cells (NONE-FEW) Urine Bacteria (NEGATIVE) Urine Mucus (NONE-MOD) Urine HCG, Qual (NEGATIVE) Urine Opiates Screen (NEGATIVE) Ur Oxycodone Screen (NEGATIVE) Urine Methadone Screen (NEGATIVE) Ur Barbiturates Screen (NEGATIVE) Ur Phencyclidine Scrn (NEGATIVE) Ur Amphetamine Screen (NEGATIVE) U Methamphetamines Scrn (NEGATIVE) U Benzodiazepines Scrn (NEGATIVE) U Cocaine Metab Screen (NEGATIVE) U Marijuana (THC) Screen (NEGATIVE) Meds: Medications Generic Name Dose Route Start Last Admin Trade Name Freq PRN Reason Stop Dose Admin Sodium Chloride 10 ml 01/17/20 14:49 Saline Flush FLUSH ASDIRECTED PRN Keep Vein Open Sodium Chloride 2.5 ml 01/17/20 14:49 Saline Flush FLUSH ASDIRECTED PRN Keep Vein Open Discontinued Medications Generic Name Dose Route Start Last Admin Trade Name Freq PRN Reason Stop Dose Admin Ceftriaxone Sodium 1 gm 01/17/20 14:52 01/17/20 15:42 Rocephin IVPUSH 01/17/20 14:53 1 gm ONETIME ONE Administration Sodium Chloride 1,000 mls @ 999 mls/hr 01/17/20 14:49 01/17/20 15:42 Normal Saline IV 01/17/20 15:49 999 mls/hr BOLUS ONE Administration Ondansetron HCl 4 mg 01/17/20 14:49 01/17/20 15:42 Zofran IVPUSH 01/17/20 14:50 4 mg ONETIME ONE Administration - Re-Assessments/Exams Free Text/Narrative Re-Assessment/Exam: 01/17/20 18:31 I offered the patient admission for her UTI with her status. She was informed of the need of admission so we can perform further testing to help further delineate and manage her current condition. She is alert/oriented x 4 with great decision making capacity. She has declined to be admitted to the hospital and elects to be discharged despite my recommendation. She would rather come back if their symptoms return/worsen. The patient was warned of the risks of not staying in the hospital, including worsening pain and . Patient still elects to go home. 01/17/20 18:33 After IVF and rocephin IV, her pain improved and she is stable for discharge. I performed a repeat examination and the patient has not demonstrated any new abnormal findings. Patient exhibits normal vital signs and has exhibited a normal gait. I advised the patient to stop using IV drugs, and to return to the ER for reevaluation if symptoms worsened, and to follow up with her [facility] within 2-3 days. Departure - Departure Time of Disposition: 18:34 Disposition: Home, Self-Care 01 Condition: Good Clinical Impression: UTI (urinary tract infection), IV drug abuse, First trimester , Transaminitis - Discharge Information *PRESCRIPTION DRUG MONITORING PROGRAM REVIEWED*: Not Applicable *COPY OF PRESCRIPTION DRUG MONITORING REPORT IN PATIENT EMMA: Not Applicable Prescriptions: cephALEXin [Keflex] 500 mg PO Q8H #30 cap Instructions: Creating a Plan, How a Baby Grows During , Antibiotic Medicine, Adult, Urinary Tract Infection, Adult, and Urinary Tract Infection, Substance Use Disorder Referrals: Emeka Morris MD [Primary Care Provider] - Forms: ED Department Discharge Additional Instructions: The following information is given to patients seen in the emergency department who are being discharged to home. This information is to outline your options for follow-up care. We provide all patients seen in our emergency department with a follow-up referral. The need for follow-up, as well as the timing and circumstances, are variable depending upon the specifics of your emergency department visit. If you don't have a primary care physician on staff, we will provide you with a referral. We always advise you to contact your personal physician following an emergency department visit to inform them of the circumstance of the visit and for follow-up with them and/or the need for any referrals to a consulting specialist. The emergency department will also refer you to a specialist when appropriate. This referral assures that you have the opportunity for follow-up care with a specialist. All of these measure are taken in an effort to provide you with optimal care, which includes your follow-up. Under all circumstances we always encourage you to contact your private physician who remains a resource for coordinating your care. When calling for follow-up care, please make the office aware that this follow-up is from your recent emergency room visit. If for any reason you are refused follow-up, please contact the [facility] at and asked to speak to the emergency department charge nurse. [facility] [address] [address] Sepsis Event Note - Evaluation Sepsis Screening Result: No Definite Risk - Focused Exam Vital Signs: Vital Signs Temp Pulse Resp BP Pulse Ox 01/17/20 14:29 97.4 F 107 H 16 108/75 99 Date Exam was Performed: 01/17/20 Time Exam was Performed: 18:31 - My Orders Last 24 Hours: My Active Orders 01/17/20 14:20 CULTURE URINE [RM] Stat 01/17/20 14:49 Sodium Chloride 0.9% [Saline Flush] 10 ml FLUSH ASDIRECTED PRN Sodium Chloride 0.9% [Saline Flush] 2.5 ml FLUSH ASDIRECTED PRN Saline Lock Insert [OM.PC] Stat 01/17/20 17:40 CULTURE STREP A CONFIRMATION [RM] Stat STREP SCRN A RAPID W CULT CONF [RM] Stat - Assessment/Plan Last 24 Hours: My Active Orders 01/17/20 14:20 CULTURE URINE [RM] Stat 01/17/20 14:49 Sodium Chloride 0.9% [Saline Flush] 10 ml FLUSH ASDIRECTED PRN Sodium Chloride 0.9% [Saline Flush] 2.5 ml FLUSH ASDIRECTED PRN Saline Lock Insert [OM.PC] Stat 01/17/20 17:40 CULTURE STREP A CONFIRMATION [RM] Stat STREP SCRN A RAPID W CULT CONF [RM] Stat
[2020-01-17 15:58] LABS: BLOOD UREA NITROGEN,BUN 9 mg/dL (7.0-18.0); CARBON DIOXIDE,CO2 27.8 mmol/L (21.0-32.0); CHLORIDE,CL 97 mmol/L (98-107); GLUCOSE RANDOM 91 mg/dL (74-106); LIPASE 46 U/L (73-393); POTASSIUM,K 3.7 mmol/L (3.5-5.1); SODIUM,NA 134 mmol/L (136-145)
--- NOTE | 2020-01-17 17:46 | US ---
Indication: Right upper quadrant pain. Right flank pain. Technique: Grayscale and color ultrasound of the right upper quadrant and right kidney was performed. Comparison: None Findings: The liver is normal in echogenicity measuring 17.7 centimeters in maximum dimension. No intrahepatic biliary ductal dilatation is identified. No intrahepatic masses are identified. The gallbladder is contracted. There is thickening of the wall of the gallbladder, but may be due to the lack of distention versus a true finding. The common bile duct measures 2 mm in thickness. No pericholecystic free fluid is identified. The pancreas is not well appreciated. The spleen measures 12.5 cm in size. No splenic masses are identified. No free fluid is identified within the abdomen. At the right kidney measures 14.3 x 5.5 x 6.6 cm in size. No hydronephrosis is identified. The left kidney measures 14.2 x 5.5 x 6.7 centimeters in size. No hydronephrosis is identified. Normal color flow is identified to the left kidney. Normal color flow is identified to the right kidney. The inferior vena cava is patent. The aorta measures 1.8 cm proximally, 1.5 centimeters in the mid aorta, and 1.3 centimeters and the distal aorta. Impression: Contracted gallbladder with gallbladder wall thickening. It is uncertain if this gallbladder wall thickening is secondary to lack of distention versus true pathology. No sonographic May sign is elicited. Questionable increased size of the kidneys bilaterally. However the kidneys are symmetric in size. No hydronephrosis is identified. Normal color flow is identified. Dictated by Kamala Shipley MD @ Jan 17 2020 5:39PM Signed by Dr. Kamala Shipley @ Jan 17 2020 5:44PM
--- NOTE | 2020-01-17 18:00 | US ---
CLINICAL HISTORY: Right-sided abdominal pain FINDINGS: Increased echogenicity of the liver. Liver is enlarged measuring 17.7 cm. The spleen is of normal size. The visualized portions of the pancreas appears normal. The proximal abdominal aorta and IVC appear normal. There is no evidence of ascites. The gallbladder appears contracted. The gallbladder wall measures 2 mm in thickness. The common bile duct measures 2 mm in size within the james hepatis. The kidneys appear symmetric. The right kidney measures 14.1 cm in length and the left kidney measures 13.9 cm. There is no evidence of a renal calculus or hydronephrosis. IMPRESSION: Unremarkable abdominal ultrasound Fatty liver. Dictated by Negar Bustamante MD @ Jan 17 2020 5:53PM Signed by Dr. Negar Bustamante @ Jan 17 2020 5:59PM
[2020-01-17] MEDS ORDERED: Acetaminophen 500 MG Tab ONE (18:59)
[2020-01-17] MEDS ORDERED: Acetaminophen 500 MG Tab PO ONE (19:01)
[2020-01-17 19:04] VITALS: BP 107/59
== END 2020-01-17 19:03 | disposition home or self-care (01) ==
LOC: MW.ED 14:03
DX: O23.41 Unspecified infection of urinary tract in pregnancy, first trimester (principal); O99.331 Smoking (tobacco) complicating pregnancy, first trimester; F17.210 Nicotine dependence, cigarettes, uncomplicated; O99.89 Other specified diseases and conditions complicating pregnancy, childbirth and the puerperium; R74.0 Nonspecific elevation of levels of transaminase and lactic acid dehydrogenase [LDH]; O99.321 Drug use complicating pregnancy, first trimester; F15.10 Other stimulant abuse, uncomplicated
CPT/HCPCS: 36415; 76700; 76817; 80053; 80305; 81001; 81025; 83690; 84702; 85025; 87081; 87086; 87088; 87186; 87880; 96374; 96375; 99284; A9270; J0696; J2405; J7030; 99283

== ENCOUNTER 2020-09-07 00:14 | Inpatient (IN) | payer MEDICAID ==
[2020-09-07] MEDS ORDERED: Misoprostol 200 MCG Tab PO PRN (00:27)
[2020-09-07] MEDS ORDERED: Butorphanol 1 MG/ML SDV IVPUSH PRN (00:27)
[2020-09-07] MEDS ORDERED: Sodium Chloride 0.9% 10 ML Syringe FLUSH PRN (00:27)
[2020-09-07] MEDS ORDERED: Carboprost Tromethamine 250 MCG/1 ML Amp IM PRN (00:27)
[2020-09-07] MEDS ORDERED: Methylergonovine 0.2 MG/1 ML Amp IM PRN (00:27)
[2020-09-07] MEDS ORDERED: Tranexamic Acid 1,000 MG in Sodium Chloride 0.9% 100 ML IV PRN (00:27)
[2020-09-07] MEDS ORDERED: Sodium Chloride 0.9% 2.5 ML Syringe FLUSH PRN (00:27)
[2020-09-07] MEDS ORDERED: Sodium Chloride 0.9% 10 ML SDV IV PRN (00:27)
[2020-09-07] MEDS ORDERED: Nalbuphine 10 MG/1 ML Vial IVPUSH PRN (00:27)
[2020-09-07] MEDS ORDERED: Water For Irrigation,Sterile 1,000 ML Container IRR PRN (00:27)
[2020-09-07] MEDS ORDERED: Lidocaine 1% 50 ML MDV INJECT PRN (00:27)
[2020-09-07] MEDS ORDERED: Oxytocin/0.9 % Sodium Chloride 30 UNIT/500 ML BAG IV SCH (00:30)
[2020-09-07] MEDS ORDERED: Lactated Ringers 1,000 ML IV SCH (00:30)
[2020-09-07] MEDS ORDERED: Oxytocin/0.9 % Sodium Chloride 30 UNIT/500 ML BAG ONE (00:34)
[2020-09-07] MEDS ORDERED: Ibuprofen 400 MG Tab PO PRN (00:47)
[2020-09-07] MEDS ORDERED: Lanolin 100% Cream 7 GM Tube TOP PRN (00:47)
[2020-09-07] MEDS ORDERED: Benzocaine/Menthol 20%-0.5% Spray 78 GM Cannister TOP PRN (00:47)
[2020-09-07] MEDS ORDERED: oxyCODONE 5 MG Tab PO PRN (00:47)
[2020-09-07] MEDS ORDERED: Docusate Sodium 100 MG Cap PO PRN (00:47)
[2020-09-07] MEDS ORDERED: Bisacodyl 10 MG Supp RECTAL PRN (00:47)
[2020-09-07] MEDS ORDERED: Witch Hazel Medicated Pads 40/Jar TOP PRN (00:47)
[2020-09-07] MEDS ORDERED: Ibuprofen 800 MG Tab PO PRN (00:47)
[2020-09-07] MEDS ORDERED: Acetaminophen 500 MG Tab PO PRN (00:47)
--- NOTE | 2020-09-07 00:50 | PCM.LDHP ---
L&D History of Present Illness - General Date of Service: 09/07/20 Admit Problem/Dx: Patient Status Order with Admit Dx/Problem 09/07/20 00:27 Patient Status [ADT] Routine 09/07/20 00:47 Patient Status [ADT] Routine Admission Diagnosis/Problem Admission Diagnosis/Problem Planned Source of Information: Patient History Limitations: Reports: No Limitations - History of Present Illness Improves with: Reports: None Worsens with: Reports: None Associated Symptoms: Reports: N - Related Data Allergies/Adverse Reactions: Allergies Allergy/AdvReac Type Severity Reaction Status Date / Time No Known Allergies Allergy Verified 09/07/20 00:26 Home Medications: Home Meds cephALEXin [Keflex] 500 mg PO Q8H #30 cap 01/17/20 [Rx] Past Medical History - Past Health History Medical/Surgical History: Denies Medical/Surgical History HEENT History: Reports: Other (See Below) Other HEENT History: abscess tooth [employer] History: Reports: Neurological History: Reports: Migraines - Infectious Disease History Infectious Disease History: Reports: Chicken Pox - Past Surgical History HEENT Surgical History: Reports: Oral Surgery, Other (See Below) Other HEENT Surgeries/Procedures: wisdom teeth extraction Neurological Surgical History: Reports: None Social & Family History - Family History Family Medical History: No Pertinent Family History HEENT: Reports: Impaired Vision Cardiac: Reports: [place] [facility]: Reports: Oncologic: Reports: Lung, Other (See Below) Other Oncologic Family History: throat - Caffeine Use Caffeine Use: Reports: None H&P Review of Systems - Review of Systems: Review Of Systems: See Below General: Reports: No Symptoms HEENT: Reports: No Symptoms Pulmonary: Reports: No Symptoms Cardiovascular: Reports: No Symptoms Gastrointestinal: Reports: No Symptoms Genitourinary: Reports: No Symptoms Musculoskeletal: Reports: No Symptoms Skin: Reports: No Symptoms Psychiatric: Reports: No Symptoms Neurological: Reports: No Symptoms Hematologic/Lymphatic: Reports: No Symptoms Immunologic: Reports: No Symptoms L&D Exam - Exam Exam: See Below - Vital Signs Weight: 155 kg - OB Specific Contraction Intensity: Moderate to Strong - Marquez Score Marquez Score Cervix Position: Anterior Marquez Score Consistency: Soft Marquez Score Effacement: >80% Marquez Score Dilation: > 5 cm Marquez Score 's Station: +1, +2 Marquez Score Total: 13 - Exam General: Alert, Oriented HEENT: PERRLA, Conjunctiva Clear, EACs Clear, EOMI, Hearing Intact, Mucosa Moist & [place], Nares Patent, Normal Nasal Septum, Posterior Pharynx Clear, TMs Clear Neck: Supple, Trachea Midline Lungs: Clear to Auscultation, Normal Respiratory Effort Cardiovascular: Regular Rate, Regular Rhythm GI/Abdominal Exam: Normal Bowel Sounds, Soft, Non-Tender, No Organomegaly, No Distention, No Abnormal Bruit, No Mass, Pelvis Stable Rectal Exam: Normal Exam, Normal Rectal Tone Genitourinary: Normal external exam, Normal bimanual exam, Normal speculum exam Back Exam: Normal Inspection, Full Range of Motion Extremities: Normal Inspection, Normal Range of Motion, Non-Tender, No Pedal Edema, Normal Capillary Refill Skin: Warm, Dry, Intact Neurological: Cranial Nerves Intact, Reflexes Equal Bilateral Psychiatric: Alert, Normal Affect, Normal Mood Problem List Initiated/Reviewed/Updated: Yes Orders Last 24hrs: Active Orders 24 hr Category Date Time Status Patient Status [ADT] Routine ADT 09/07/20 00:47 Ordered Heart Tones [RC] CONTINUOUS Care 09/07/20 00:27 Active Non Stress Test [RC] PER UNIT ROUTINE Care 09/07/20 00:27 Active May Shower [RC] ASDIRECTED Care 09/07/20 00:27 Active May Shower [RC] ASDIRECTED Care 09/07/20 00:47 Ordered Notify Provider [RC] PRN Care 09/07/20 00:27 Active Up ad Loren [RC] ASDIRECTED Care 09/07/20 00:27 Active Up ad Loren [RC] ASDIRECTED Care 09/07/20 00:47 Ordered Vaginal Exam [RC] PRN Care 09/07/20 00:27 Active Vital Signs [RC] PER UNIT ROUTINE Care 09/07/20 00:27 Active Vital Signs [RC] PER UNIT ROUTINE Care 09/07/20 00:47 Ordered CBC W/O DIFF,HEMOGRAM [HEME] Routine Lab 09/07/20 00:27 Ordered HEMOGLOBIN/HEMATOCRIT,HH [HEME] Timed Lab 09/08/20 05:11 Ordered RPR (SYPHILIS SERO) W/ RFLX [REF] Routine Lab 09/07/20 00:27 Ordered TYPE AND SCREEN [BBK] Routine Lab 09/07/20 00:27 Ordered Acetaminophen [Tylenol Extra Strength] Med 09/07/20 00:47 Ordered 1,000 mg PO Q4H PRN Acetaminophen [Tylenol Extra Strength] Med 09/07/20 00:47 Ordered 500 mg PO Q4H PRN Benzocaine/Menthol [Dermoplast Pain Relief 20%-0.5% Med 09/07/20 00:47 Ordered [place]] 78 gm TOP ASDIRECTED PRN Butorphanol [Stadol] Med 09/07/20 00:27 Active 1 mg IVPUSH Q1H PRN Carboprost Tromethamine [Hemabate DS] Med 09/07/20 00:27 Active 250 mcg IM ASDIRECTED PRN Docusate Sodium [Colace] Med 09/07/20 00:47 Ordered 100 mg PO BID PRN Ibuprofen [Motrin] Med 09/07/20 00:47 Ordered 400 mg PO Q4H PRN Ibuprofen [Motrin] Med 09/07/20 00:47 Ordered 800 mg PO Q6H PRN Lactated Ringers [Ringers, Lactated] 1,000 ml Med 09/07/20 00:30 Active IV ASDIRECTED Lanolin [Lansinoh HPA] Med 09/07/20 00:47 Ordered See Dose Instructions TOP ASDIRECTED PRN Lidocaine 1% [Xylocaine 1%] Med 09/07/20 00:27 Active 50 ml INJECT ONETIME PRN Methylergonovine [Methergine] Med 09/07/20 00:27 Active 0.2 mg IM ASDIRECTED PRN Nalbuphine [Nubain] Med 09/07/20 00:27 Active 10 mg IVPUSH Q1H PRN Oxytocin/0.9 % Sodium Chloride [Oxytocin 30 Unit/500 ML Med 09/07/20 00:30 Active -NS] 30 unit in 500 ml IV TITRATE Sodium Chloride 0.9% [Normal Saline] Med 09/07/20 00:27 Active 10 ml IV ASDIRECTED PRN Sodium Chloride 0.9% [Saline Flush] Med 09/07/20 00:27 Active 10 ml FLUSH ASDIRECTED PRN Sodium Chloride 0.9% [Saline Flush] Med 09/07/20 00:27 Active 2.5 ml FLUSH ASDIRECTED PRN Tranexamic Acid [Cyklokapron] 1,000 mg Med 09/07/20 00:27 Active Sodium Chloride 0.9% [Normal Saline] 100 ml IV ONETIME Water For Irrigation,Sterile [Sterile Water for Med 09/07/20 00:27 Active Irrigation] 1,000 ml IRR ASDIRECTED PRN bisacodyL [Dulcolax] Med 09/07/20 00:47 Ordered 10 mg RECTAL ONETIME PRN miSOPROStoL [Cytotec] Med 09/07/20 00:27 Active 200 mcg PO ONETIME PRN oxyCODONE Med 09/07/20 00:47 Ordered 5 mg PO Q2H PRN [place] [Tucks] Med 09/07/20 00:47 Ordered 1 pad TOP ASDIRECTED PRN Assess Lochia [WOMSER] Per Unit Routine Ot 09/07/20 00:47 Ordered Assess Uterine Involution [WOMSER] Per Unit Routine Ot 09/07/20 00:47 Ordered Scalp Electrode [WOMSER] Per Unit Routine Ot 09/07/20 00:27 Ordered Peripheral IV Discontinue [OM.PC] Routine Ot 09/07/20 00:47 Ordered Peripheral IV Insertion Adult [OM.PC] Routine Oth 09/07/20 00:27 Ordered Resuscitation Status Routine Resus Stat 09/07/20 00:27 Ordered Medication Orders Butorphanol Tartrate (Stadol) 1 mg IVPUSH Q1H PRN PRN Reason: Pain Carboprost Tromethamine (Hemabate Ds) 250 mcg IM ASDIRECTED PRN PRN Reason: Post Hemorrhage Oxytocin/Sodium Chloride (Oxytocin 30 Unit/500 Ml-Ns) 30 unit in 500 mls @ 500 mls/hr IV TITRATE [facility] Last Admin: 09/07/20 00:38 Dose: 500 mls/hr Documented by: JOHN Tranexamic Acid 1,000 mg/ (Sodium Chloride) 110 mls @ 660 mls/hr IV ONETIME PRN PRN Reason: Bleeding Lactated Ringer's (Ringers, Lactated) 1,000 mls @ 150 mls/hr IV ASDIRECTED ANA Lidocaine HCl (Xylocaine 1%) 50 ml INJECT ONETIME PRN PRN Reason: Laceration repair Methylergonovine Maleate (Methergine) 0.2 mg IM ASDIRECTED PRN PRN Reason: Post Hemorrhage Misoprostol (Cytotec) 200 mcg PO ONETIME PRN PRN Reason: Post Hemorrhage Nalbuphine HCl (Nubain) 10 mg IVPUSH Q1H PRN PRN Reason: Pain (severe 7-10) Sodium Chloride (Saline Flush) 10 ml FLUSH ASDIRECTED PRN PRN Reason: Keep Vein Open Sodium Chloride (Saline Flush) 2.5 ml FLUSH ASDIRECTED PRN PRN Reason: Keep Vein Open Sodium Chloride (Normal Saline) 10 ml IV ASDIRECTED PRN PRN Reason: IV Use Sterile Water (Sterile Water For Irrigation) 1,000 ml IRR ASDIRECTED PRN PRN Reason: delivery
--- NOTE | 2020-09-07 07:22 | OR ---
SURGEON: Francisco Sarah MD DATE OF PROCEDURE: 09/07/2020 PRIMARY SURGEON: Francisco Sarah MD DELIVERY NOTE: Ms. Luna is a 24-year-old patient. She is para 4-0-0-4. She had limited care in our clinic, and she was seen primarily by our Nurse Midwifery Service. The patient is presented to Labor and Delivery today in active labor. She stated that her labor started at 5 o'clock, rather mild, and then, it went to intense. By the time, she arrived to Labor and Delivery, which is after midnight, which is early in the morning of September 07, she was complete, complete, vertex, and +1, +2 station and ready to push. I was notified. I came to Labor and Delivery as soon as I could; however, the baby was delivered by the time I arrived, and the delivery of the of the baby was attended by the Labor and Delivery personnel. The baby cried immediately. scores later on were reported to be 8 and 9. I delivered the placenta without any problem, and there was no perineal, vaginal, or labial tear. Estimated blood loss was 300 to 350 mL. The limited heart rate monitoring the patient had was category I. COMPLICATIONS: There was no complication in the delivery and the labor process. JAN / RADHA /[id number]
[2020-09-07] MEDS: Acetaminophen 500 MG Tab PO PRN ×2 (08:20→20:09)
[2020-09-08 09:03] VITALS: BP 123/77
--- NOTE | 2020-09-08 12:03 | PCM.DCSUM1 ---
Discharge Summary - Hospital Course Free Text/Narrative:: Discharge home with baby. Follow up in the clinic in 6 weeks for routine visit; sooner, if needed. Diagnosis: Stroke: No Modified Lidia Scale: No Symptoms at All Modified Lidia Scale Score: 0 - Discharge Data Discharge Date: 09/08/20 Discharge Disposition: Home, Self-Care 01 Condition: Good - Referral to Home Health Primary Care Physician: PCP None - Discharge Diagnosis/Problem(s) (1) (spontaneous vaginal delivery) SNOMED Code(s): 118393254 ICD Code: O80 - ENCOUNTER FOR FULL-TERM UNCOMPLICATED DELIVERY Status: Acute Priority: Medium Current Visit: No - Patient Instructions Diet: Regular Diet as Tolerated, Drink 8-10+ Glasses/Day Activity: As Tolerated, No Strenuous Activities, Rest and Relax Today Driving: May Drive Today Showering/Bathing: May Shower Notify Provider of: Fever, Increased Pain, Swelling and Redness, Drainage, Nausea and/or Vomiting - Discharge Plan *PRESCRIPTION DRUG MONITORING PROGRAM REVIEWED*: Not Applicable *COPY OF PRESCRIPTION DRUG MONITORING REPORT IN PATIENT EMMA: Not Applicable Prescriptions/Med Rec: Ibuprofen [Motrin] 800 mg PO Q6H PRN #90 tablet PRN Reason: Pain Home Medications: Home Meds Ibuprofen [Motrin] 800 mg PO Q6H PRN #90 tablet 09/08/20 [Rx] Oxygen Therapy Mode: Room Air - Discharge Summary/Plan Comment DC Time >30 min.: Yes - General Info Date of Service: 09/08/20 Admission Dx/Problem (Free Text: Patient Status Order with Admit Dx/Problem 09/07/20 00:27 Patient Status [ADT] Routine 09/07/20 00:47 Patient Status [ADT] Routine Admission Diagnosis/Problem Admission Diagnosis/Problem Planned Functional Status: Reports: Pain Controlled, Tolerating Diet, Ambulating, Urinating - Review of Systems General: Reports: No Symptoms HEENT: Reports: No Symptoms Pulmonary: Reports: No Symptoms Cardiovascular: Reports: No Symptoms Gastrointestinal: Reports: No Symptoms Genitourinary: Reports: No Symptoms Musculoskeletal: Reports: No Symptoms Skin: Reports: No Symptoms Neurological: Reports: No Symptoms Psychiatric: Reports: No Symptoms - Patient Data Vitals - Most Recent: Last Vital Signs Temp 98.2 F 09/08/20 08:45 Pulse 79 09/08/20 08:45 Resp 18 09/08/20 08:45 BP 123/77 09/08/20 08:45 Pulse Ox 99 09/08/20 08:45 Weight - Most Recent: 150 lb Lab Results - Last 24 hrs: Laboratory Results - last 24 hr 09/08/20 Range/Units 04:25 Hgb 10.2 L (12.0-16.0) g/dL Hct 32.6 L (36.0-46.0) % Med Orders - Current: Current Medications Acetaminophen (Tylenol Extra Strength) 500 mg PO Q4H PRN PRN Reason: Pain Acetaminophen (Tylenol Extra Strength) 1,000 mg PO Q4H PRN PRN Reason: Pain Last Admin: 09/07/20 20:09 Dose: 1,000 mg Documented by: Benzocaine/Menthol (Dermoplast Pain Relief 20%-0.5% [place]) 78 gm TOP ASDIRECTED PRN PRN Reason: Perineal Comfort Measure Bisacodyl (Dulcolax) 10 mg RECTAL ONETIME PRN PRN Reason: Constipation Butorphanol Tartrate (Stadol) 1 mg IVPUSH Q1H PRN PRN Reason: Pain Carboprost Tromethamine (Hemabate Ds) 250 mcg IM ASDIRECTED PRN PRN Reason: Post Hemorrhage Docusate Sodium (Colace) 100 mg PO BID PRN PRN Reason: Constipation Emollient Ointment (Lansinoh Hpa) 0 gm TOP ASDIRECTED PRN PRN Reason: Sore Nipples Last Admin: 09/07/20 20:08 Dose: 7 gram Documented by: Oxytocin/Sodium Chloride (Oxytocin 30 Unit/500 Ml-Ns) 30 unit in 500 mls @ 500 mls/hr IV TITRATE ANA Last Admin: 09/07/20 00:38 Dose: 500 mls/hr Documented by: Tranexamic Acid 1,000 mg/ (Sodium Chloride) 110 mls @ 660 mls/hr IV ONETIME PRN PRN Reason: Bleeding Lactated Ringer's (Ringers, Lactated) 1,000 mls @ 150 mls/hr IV ASDIRECTED ANA Ibuprofen (Motrin) 400 mg PO Q4H PRN PRN Reason: Pain Ibuprofen (Motrin) 800 mg PO Q6H PRN PRN Reason: Pain Lidocaine HCl (Xylocaine 1%) 50 ml INJECT ONETIME PRN PRN Reason: Laceration repair Methylergonovine Maleate (Methergine) 0.2 mg IM ASDIRECTED PRN PRN Reason: Post Hemorrhage Misoprostol (Cytotec) 200 mcg PO ONETIME PRN PRN Reason: Post Hemorrhage Nalbuphine HCl (Nubain) 10 mg IVPUSH Q1H PRN PRN Reason: Pain (severe 7-10) Oxycodone HCl (Oxycodone) 5 mg PO Q2H PRN PRN Reason: Pain Sodium Chloride (Saline Flush) 10 ml FLUSH ASDIRECTED PRN PRN Reason: Keep Vein Open Sodium Chloride (Saline Flush) 2.5 ml FLUSH ASDIRECTED PRN PRN Reason: Keep Vein Open Sodium Chloride (Normal Saline) 10 ml IV ASDIRECTED PRN PRN Reason: IV Use Sterile Water (Sterile Water For Irrigation) 1,000 ml IRR ASDIRECTED PRN PRN Reason: delivery [place] (Tucks) 1 pad TOP ASDIRECTED PRN PRN Reason: comfort care Discontinued Medications Oxytocin/Sodium Chloride (Oxytocin 30 Unit/500 Ml-Ns) Confirm Administered Dose 30 unit in 500 mls @ as directed .ROUTE .[facility] Stop: 09/07/20 00:35 - Exam General: Reports: Alert, Oriented, Cooperative, No Acute Distress Lungs: Reports: Normal Respiratory Effort Cardiovascular: Reports: Regular Rate, Regular Rhythm GI/Abdominal Exam: Soft, Non-Tender (Female) Exam: Deferred Rectal (Female) Exam: Deferred Back Exam: Reports: Normal Inspection, Full Range of Motion Extremities: Normal Inspection, Normal Range of Motion, Non-Tender, Normal Capillary Refill Skin: Reports: Warm, Dry, Intact Neurological: Reports: No New Focal Deficit, Normal Gait, Normal Speech, Normal Tone Psy/Mental Status: Reports: Alert, Normal Affect, Normal Mood
[2020-09-08 17:23] VITALS: PULSE 111
== END 2020-09-08 17:58 | disposition home or self-care (01) | DRG 807 ==
LOC: MW.OBCHECK 00:14 → MW.OB 00:15 → MW.OBCHECK 00:27 → OBSVTOIN 00:33 → MW.OB 00:33
PROVIDERS: ADMIT Obstetrics & Gynecology; ATTEND Obstetrics & Gynecology
PROC: 10E0XZZ Delivery of Products of Conception, External Approach (ICD-10-PCS; principal; 2020-09-07)
DX: O80 Encounter for full-term uncomplicated delivery (principal); Z37.0 Single live birth; Z20.822 Contact with and (suspected) exposure to COVID-19; Z68.37 Body mass index [BMI] 37.0-37.9, adult
CPT/HCPCS: 36415; 59025; 59409; 85014; 85018; 85027; 86592; 86850; 86900; 86901; 87340; A9270-GY; J2590; U0002

== ENCOUNTER 2022-01-22 20:18 | Emergency (ER) | payer MEDICAID ==
[2022-01-22] MEDS ORDERED: Lidocaine 2% Viscous Solution 15 ML UD PO ONE (20:29)
[2022-01-22] MEDS ORDERED: Amoxicillin/Clavulanate K 875-125 MG Tab PO ONE (20:29)
[2022-01-22] MEDS ORDERED: traMADol 50 MG Tab PO ONE (20:29)
[2022-01-22] MEDS ORDERED: Benzocaine 20% Topical Spray UD MUCMEM ONE (20:29)
[2022-01-22 20:30] VITALS: BP 119/61; PULSE 81
== END 2022-01-22 20:54 | disposition home or self-care (01) ==
LOC: MW.ED 20:18
DX: K04.7 Periapical abscess without sinus (principal); K02.9 Dental caries, unspecified; Z79.899 Other long term (current) drug therapy
CPT/HCPCS: 99282; A9270

== ENCOUNTER 2024-05-28 14:11 | Emergency (ER) | payer SELFPAY ==
[2024-05-28] MEDS: Lidocaine 2% Viscous Solution 15 ML UD PO ONE (14:32)
[2024-05-28] MEDS: Benzocaine 20% Topical Spray UD MUCMEM ONE (14:32)
[2024-05-28 15:02] VITALS: BP 131/50; PULSE 76
== END 2024-05-28 14:41 | disposition home or self-care (01) ==
LOC: MW.ED 14:11
DX: K04.7 Periapical abscess without sinus (principal); K02.9 Dental caries, unspecified; Z75.8 Other problems related to medical facilities and other health care
CPT/HCPCS: 99282; A9270-GY

== ENCOUNTER 2024-07-28 15:14 | Emergency (ER) | payer SELFPAY ==
[2024-07-28 15:30] VITALS: BP 129/83; PULSE 84
[2024-07-28] MEDS: Dexamethasone 4 MG Tab PO ONE (15:42)
== END 2024-07-28 16:21 | disposition home or self-care (01) ==
LOC: MW.ED 15:14
DX: J02.0 Streptococcal pharyngitis (principal)
CPT/HCPCS: 99282; J8540